=== PATIENT | female | born 1970 | race Caucasian/White ===

== ENCOUNTER 2018-04-16 06:45 | Emergency (ER) | payer MEDICAID ==
[~2018-04-16] VITALS: Ht 154.9 cm; Wt 58.1 kg
[2018-04-16 07:19] VITALS: BP 129/82
[2018-04-16] MEDS ORDERED: IBUPROFEN 800 MG TAB PO ONE (08:15)
== END 2018-04-16 09:37 | disposition home or self-care (01) ==
LOC: ER 06:45
CPT/HCPCS: 73130

== ENCOUNTER 2018-09-30 10:23 | Emergency (ER) | payer MEDICAID ==
[~2018-09-30] VITALS: Ht 154.9 cm; Wt 63.5 kg
[2018-09-30 10:52] VITALS: BP 129/81
[2018-09-30] MEDS ORDERED: traMADol HCL 50 MG TAB PO ONE (11:00)
[2018-09-30] MEDS ORDERED: METHOCARBAMOL 500 MG TAB PO ONE (11:00)
== END 2018-09-30 13:13 | disposition home or self-care (01) ==
LOC: EDBD 10:23 → ER 10:23
DX: S63.602A Unspecified sprain of left thumb, initial encounter (principal); S80.211A Abrasion, right knee, initial encounter; S40.211A Abrasion of right shoulder, initial encounter; F17.210 Nicotine dependence, cigarettes, uncomplicated; F15.10 Other stimulant abuse, uncomplicated; Z88.0 Allergy status to penicillin; Z88.8 Allergy status to other drugs, medicaments and biological substances; V43.52XA Car driver injured in collision with other type car in traffic accident, initial encounter; Y93.89 Activity, other specified; Y92.89 Other specified places as the place of occurrence of the external cause; Y99.8 Other external cause status; J44.9 Chronic obstructive pulmonary disease, unspecified
CPT/HCPCS: 73030; 73130; 73560

== ENCOUNTER 2019-01-16 13:00 | Emergency (ER) | payer MEDICAID ==
[~2019-01-16] VITALS: Ht 154.9 cm; Wt 50.8 kg
[2019-01-16 16:02] VITALS: BP 117/61
[2019-01-16] MEDS ORDERED: ACETAMINOPHEN/CODEINE#3 (300/30mg) TAB PO ONE (17:00)
== END 2019-01-16 18:24 | disposition home or self-care (01) ==
LOC: ER 13:00
DX: S80.812A Abrasion, left lower leg, initial encounter (principal); M54.2 Cervicalgia; M62.838 Other muscle spasm; M25.512 Pain in left shoulder; J44.9 Chronic obstructive pulmonary disease, unspecified; F17.210 Nicotine dependence, cigarettes, uncomplicated; F15.10 Other stimulant abuse, uncomplicated; Z88.0 Allergy status to penicillin; Z88.6 Allergy status to analgesic agent; V29.49XA Motorcycle driver injured in collision with other motor vehicles in traffic accident, initial encounter; Y93.89 Activity, other specified; Y92.488 Other paved roadways as the place of occurrence of the external cause; Y99.8 Other external cause status
CPT/HCPCS: 70450; 72125; 73030